=== PATIENT | male | born 2000 | race Hispanic/Latino ===

== ENCOUNTER → 2018-04-21 | Outpatient (CLI) | payer OTHER ==
--- NOTE | 2018-04-21 12:24 | Diagnostic Imaging Report ---
[facility]CRUM X-RAY - 2 views HISTORY: Pain COMPARISON: None available. FINDINGS: Bones: No acute displaced fracture. Osseous alignment is within normal limits. Joints: The joint spaces are well-maintained. Soft tissues: The soft tissues appear unremarkable. IMPRESSION: No evidence of acute displaced fracture. Signed by: Dr. Andrew Saucedo MD on 04/21/2018 12:21 PM
--- NOTE | 2018-04-21 12:25 | Diagnostic Imaging Report ---
Lumbar Spine Radiographs: 5 views HISTORY: Pain COMPARISON: None available. DISCUSSION: Some of the osseous structures are partially obscured by stool and bowel gas. There are five non-rib bearing lumbar vertebral bodies. The alignment of the spine is within normal limits. No displaced fracture or compression deformity is identified. Vertebral body heights are maintained. IMPRESSION: No acute radiographic abnormality. Signed by: Dr. Andrew Saucedo MD on 04/21/2018 12:22 PM
== END ==
LOC: RAD 10:30
PROVIDERS: ATTEND Internal Medicine
DX: S33.5XXS Sprain of ligaments of lumbar spine, sequela (principal)
CPT/HCPCS: 72110; 72220

== ENCOUNTER → 2019-01-08 | Day surgery (SDC) | payer OTHER ==
[~2019-01-08] MED LIST: B&O 60MG R/S 60 MG SUPP PR ONE; CEFTRIAXONE SOD 1 GM/NS 50 ML 50 ML IV ONE; DEXAMETHASONE SOD PHOS INJ 4 MG/ML VIAL ONE; FENTANYL CITRATE/PF 100MCG/2 ML INJ ONE; IOPAMIDOL 300MG/ML 50ML INFUS..BTL IV ONE; LIDOCAINE HCL 2% LOCAL INJ 5 ML SDV VIAL INJ ONE; MIDAZOLAM HCL 2 MG/2 ML VIAL ONE; ONDANSETRON HCL INJ 2MG/ML 2ML 2 MG/ML VIAL ONE; PHENAZOPYRIDINE HCL 100 MG TAB PO ONE; PROPOFOL IV EMULSION 10 MG/ML 20 ML VIAL ONE; SEVOFLURANE INHAL SOLN 250 ML PEN BTL ONE
--- OUTSIDE RECORDS SUMMARY | 2019-01-08 10:38 | XMS REPORT ---
[facility] Address Unknown Phone Unavailable Care Team Providers Care [employer] Teacher Name Role Phone Jonelle WESTON Unavailable Unavailable Problems This patient has no known problems. Allergies, Adverse Reactions, Alerts This patient has no known allergies or adverse reactions. Medications This patient has no known medications. Results Test Description Test Time Test Comments Text Results Atomic Results Result Comments SP LUMBAR, COMPLETE MIN 4VW 2018-04-21 12:21:00 [place] [address] Patient Name: LUKE CRONIN MR #: [id number] : 2000 Age/Sex: 18/M Req #: [id number] Adm Physician: Ordered by: DONOVAN WESTON MD Report #: [id number] Location: [facility] Room/Bed: Procedure: [id number] DX/SP LUMBAR, COMPLETE MIN 4VW Exam Date: 04/21/18 Exam Time: 1030 REPORT STATUS: Signed Lumbar Spine Radiographs: 5 views HISTORY: Pain COMPARISON: None available. DISCUSSION: Some of the osseous structures are partially obscured by stool and bowel gas. There are five non-rib bearing lumbar vertebral bodies. The alignment of the spine is within normal limits. No displaced fracture or compression deformity is identified. Vertebral body heights are maintained. IMPRESSION: No acute radiographic abnormality. Signed by: Dr. Andrew Saucedo MD on 04/21/2018 12:22 PM Dictated By: ANDREW SAUCEDO MD 1222 Transcribed By: ORESTES on 04/21/18 1222 COPY TO: DONOVAN WESTON MD SACRUM X-RAY 2018-04-21 12:19:00 [place] [address] Patient Name: LUKE CRONIN MR #: [id number] : 2000 Age/Sex: 18/M Req #: [id number] Adm Physician: Ordered by: DONOVAN WESTON MD Report #: [id number] Location: [facility] Room/Bed: Procedure: [id number] DX/SACRUM X-RAY Exam Date: 04/21/18 Exam Time: 1030 REPORT STATUS: Signed [facility]CRUM X-RAY - 2 views HISTORY: Pain COMPARISON: None available. FINDINGS: Bones: No acute displaced fracture. Osseous alignment is within normal limits. Joints: The joint spaces are well-maintained. Soft tissues: The soft tissues appear unremarkable. IMPRESSION: No evidence of acute displaced fracture. Signed by: Dr. Andrew Saucedo MD on 04/21/2018 12:21 PM Dictated By: ANDREW SAUCEDO MD 1221 Transcribed By: ORESTES on 04/21/18 1221 COPY TO: DONOVNA WESTON MD
[2019-01-08 14:00] VITALS: BP 113/70
--- NOTE | 2019-02-15 00:51 | Operative Report ---
DATE OF PROCEDURE: 01/08/2019 SURGEON: Frankie Tompkins MD PREOPERATIVE DIAGNOSIS: Dysuria. POSTOPERATIVE DIAGNOSIS: Dysuria. OPERATION PERFORMED: 1. Cystourethroscopy with bilateral ureteral catheterization and retrograde ureteropyelography. 2. Interpretation of retrograde ureteropyelography. 3. Supervision of fluoroscopy, no radiologist present. ANESTHESIA: General. COMPLICATIONS: None. CLINICAL SUMMARY: Roberto Mullins is a 18-year-old man with dysuria. He is brought for evaluation. He is aware of the risks of bleeding, infection, injury to adjacent structures, need for additional procedures, and elected to proceed. OPERATIVE PROCEDURE IN DETAIL: Informed consent was verified. Roberto Mullins was properly identified, taken to the operating room, and placed on the cystoscopy table in supine position. Anesthesia was uneventfully begun. The patient was then carefully and gently repositioned in dorsal lithotomy position with all pressure points well padded. His genitalia were prepared and draped in usual sterile fashion. A 22.5-Honduran cystoscope sheath with the visual obturator in place was atraumatically inserted into the patient's urethra, it was guided down the unremarkable urethra through the normal prostatic urethra and into the patient's bladder, where panendoscopy revealed trabeculations. They were grade 2 in nature. There was mild trigonitis noted as well. No suspicious mucosal lesions were identified, but there was cloudy urine in the bladder. This urine was sent for culture and sensitivity. An 8-Honduran catheter was used to cannulate each ureter and retrograde ureteropyelogram was performed. Interpretation of retrograde ureteropyelography contrast was instilled in retrograde fashion bilaterally. There were no tumors, no stones, and no diverticula. Unobstructed drainage was observed bilaterally fluoroscopically. The patient's bladder was drained and the cystoscope was withdrawn. A belladonna and opium suppositories were placed revealing a 15 g prostate, that is smooth, non-fluctuant without any nodules. The patient was then uneventfully reversed from anesthesia and taken to recovery room in stable condition. Explicit postop instructions were given. We follow the patient up in the office. Frankie Tompkins MD [place]/MODL /[id number] cc: Viktor Hancock MD
== END | disposition home or self-care (01) ==
LOC: OR 10:30
PROVIDERS: ATTEND Urology
DX: R30.0 Dysuria (principal); N32.89 Other specified disorders of bladder; R35.1 Nocturia; N47.6 Balanoposthitis; N34.1 Nonspecific urethritis
CPT/HCPCS: 52005; 74420; 87086; J0696; J1100; J2001; J2250; J2405; J2704; J3010; Q9967